=== PATIENT | female | born 1985 | race Caucasian/White ===

== ENCOUNTER 2022-08-27 11:29 | Emergency (ER) | payer MEDICAID ==
[~2022-08-27] VITALS: Ht 163.8 cm; Wt 69.1 kg
[2022-08-27 12:02] VITALS: BP 133/84
[2022-08-27] MEDS ORDERED: HYDROcodone/acetaminophen 10/325mg tab PO STA (12:30)
[2022-08-27] MEDS ORDERED: ketorolac tromethamine 15mg/ml inj. IM STA (12:30)
[2022-08-27] MEDS ORDERED: LIDOcaine 1% W/epiNEPHrine 1:100,000 20ml vial SQ STA (12:30)
[2022-08-27] MEDS ORDERED: HYDR-3973 PO (14:05)
== END 2022-08-27 14:19 | disposition home or self-care (01) ==
LOC: ER 11:30
DX: S62.316A Displaced fracture of base of fifth metacarpal bone, right hand, initial encounter for closed fracture (principal); S81.812A Laceration without foreign body, left lower leg, initial encounter; W06.XXXA Fall from bed, initial encounter; Y93.89 Activity, other specified; Y92.89 Other specified places as the place of occurrence of the external cause; Y99.8 Other external cause status
CPT/HCPCS: 12002; 29125; 73130; 96372; 99283; A6223; J1885; J3490; A6258; A6449